=== PATIENT | male | born 1945 | race Caucasian/White ===

== ENCOUNTER 2018-10-09 10:34 | Emergency (ER) | payer MEDICARE ==
[~2018-10-09 10:34] MED LIST: AEC81 PO; ATOR40TA69 PO; BUSP15TA3 PO; CITA40TA6 PO; DONE5TAB33 PO; GLUC-145 PO; LISI-613 PO; LORA0.5T2 PO; MULT-1289 PO; OMEG-98 PO; ZOLP5TAB8 PO
[2018-10-09] MEDS ORDERED: TETANUS/DIPHTHERIA TOXOID [ADULT] 0.5 ML VIAL IM ONE (10:50)
== END 2018-10-09 11:42 | disposition home or self-care (01) ==
LOC: EDH 10:34
DX: S62.617A Displaced fracture of proximal phalanx of left little finger, initial encounter for closed fracture (principal); S52.502A Unspecified fracture of the lower end of left radius, initial encounter for closed fracture; S20.212A Contusion of left front wall of thorax, initial encounter; W11.XXXA Fall on and from ladder, initial encounter; Y93.89 Activity, other specified; Y92.89 Other specified places as the place of occurrence of the external cause; Y99.8 Other external cause status
CPT/HCPCS: 29125; 71100; 73110; 73130; 90471; 90714

== ENCOUNTER → 2024-06-15 | Outpatient (CLI) | payer MEDICARE ==
[~2024-06-15] MED LIST changes: +ASPI-1197 PO; +ATOR40TA71 PO; +CITA-106 PO; +CITA-108 PO; -CITA40TA6 PO; +FINA5TAB41 PO; +FLUT16H NASAL; +HYDR-4068 PO; -LISI-613 PO; +LISI20TA24 PO; +SILV25CR23 TP
--- NOTE | 2024-06-15 14:37 | HMCIMG ---
US CAROTID DUPLEX REASON: occlusion and stenosis of rt carotid artery TECHNIQUE: Exam was performed using spectral analysis and color flow imaging. FINDINGS: Color flow Doppler ultrasound shows normal-appearing bifurcations. There is no anatomic evidence of significant focal narrowing. Flow velocities and velocity ratios appear normal throughout. Moderate plaque in both bifurcations. There is elevated flow velocity proximal right internal carotid artery consistent with a 50-70% stenosis. There is no evidence of stenosis on the left. There is antegrade flow in both vertebral arteries. RIGHT CAROTID: CCA: 98 cm/sec ICA: 201 cm/sec Ratio: ICA/CCA: 2.1 ECA: 2 3 cm/sec Vertebral artery: 36 cm/sec LEFT CAROTID: CCA: 70 cm/sec ICA: 124 cm/sec Ratio: ICA/CCA: 1.8 ECA: 155 cm/sec Vertebral artery: 49 cm/sec IMPRESSION: 1. Findings consistent with a 50-70% stenosis proximal right internal carotid artery.
== END | disposition home or self-care (01) ==
LOC: RAH 13:00
PROVIDERS: ATTEND Family Medicine
DX: I65.21 Occlusion and stenosis of right carotid artery (principal)
CPT/HCPCS: 93880

== ENCOUNTER → 2024-08-10 | Outpatient (CLI) | payer OTHER ==
--- NOTE | 2024-08-10 13:31 | HMCIMG ---
CT calcium scoring Clinical Information: [facility] SCREENING Comparison: None CT Dose Index (CTDI): 13.30 mGy Dose Length Product (DLP): 186.18 total mGy-cm Findings: Calcium score : 01.5. Significant calcification. The CT scan is not a complete chest CT. Covered portion is reviewed for incidental findings. No incidental findings seen. IMPRESSION: Calcium score as above. Calcium score reference stable: 0: No identifiable calcification 1- 10: Minimal identifiable calcification 11-100: Mild calcification 101- 400: Moderate calcification 401 and above: Significant calcification Automated exposure control and adequate statistical iterative reconstructions were utilized as dose reduction techniques.
== END | disposition home or self-care (01) ==
LOC: RAH 12:41
PROVIDERS: ATTEND Internal Medicine
DX: Z13.6 Encounter for screening for cardiovascular disorders (principal); I25.10 Atherosclerotic heart disease of native coronary artery without angina pectoris; R73.03 Prediabetes
CPT/HCPCS: 75571

== ENCOUNTER 2024-10-04 14:25 | Emergency (ER) | payer OTHER ==
[~2024-10-04] VITALS: Ht 188 cm; Wt 102.1 kg
[2024-10-04] MEDS ORDERED: TETRACAINE HCL 0.5% 4 ML OPHTH SOLN ONE (16:04)
[2024-10-04] MEDS ORDERED: FLUORESCEIN SODIUM 1 STRIP STRIP OP ONE (16:30)
[2024-10-04] MEDS ORDERED: POLYOS OP (16:42)
--- NOTE | 2024-10-04 16:44 | ERN ---
ED Note History of Present Illness Stated Complaint: LEFT EYE PAIN Chief Complaint: Eye Problems Time Seen by MD: 15:38 Dictation: HISTORY OF PRESENT ILLNESS: 79-year-old male with past medical history of diabetes, hyperlipidemia, hypertension presented to ED with complaints of left eye irritation for past 3 days. 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 He denies any vision changes, discharge from left eye, eye pain. At the time of presentation his pulse rate is 76 per minute, blood pressure 141/79, respiratory rate 16, temperature 98 F. His left eye is red. Allergies: Coded Allergies: No Allergy Information Available (Verified Allergy, Unknown, 10/04/22) No Known Drug Allergies (Verified Allergy, Unknown, 01/31/17) Home Meds Active Scripts Polymyxin B Sulfate/Tmp (Polytrim Ophth Soln) 10,000 Unit-1 Mg/Ml Opsol, 1 DROP OP TID for 7 Days, #10 ML 0 Refills Prov:DIAZ BAIG MD 10/04/24 Silver Sulfadiazine (Ssd) 25 Gm Cream..g., 1 VIVIEN TP BID, #1 TUBE 1 Refill Apply to wound twice per day Prov:JENNIFER GUALLPA MD 02/11/22 Reported Medications Zolpidem Tartrate (Zolpidem Tartrate) 5 Mg Tablet, 5 MG PO DAILY, TAB 02/07/22 Donepezil HCl (Donepezil HCl) 5 Mg Tablet, 5 MG PO DAILY, TAB 02/07/22 Citalopram Hydrobromide (Celexa 20Mg Tab) 20 Mg Tablet, 20 MG PO DAILY, TAB 02/07/22 Finasteride (Finasteride) 5 Mg Tablet, 5 MG PO DAILY, TAB 02/07/22 Atorvastatin Calcium (Atorvastatin Calcium) 40 Mg Tablet, 40 MG PO HS, TAB 02/07/22 Lisinopril (Lisinopril) 20 Mg Tablet, 20 MG PO DAILY, TAB 02/07/22 Aspirin (Aspirin) 81 Mg Tab.chew, 81 MG PO DAILY, TAB.CHEW 02/07/22 Hydrocodone/Acetaminophen (Hydrocodon-Acetaminophn 10-325) 1 Each Tablet, 1 EACH PO Q4HPRN, TAB 02/06/22 Fluticasone Propionate (Flonase Nasal [place]) 50 Mcg/Commiskey [place], 50 MCG NASAL DAILY, SPRAY 02/06/22 Multivit-Min/FA/Lycopen/Lutein (Centrum Silver Men Tablet) 1 Each Tablet, 1 EACH PO DAILY, TAB 01/31/17 Gluc 2Kcl/Chondr/[place] Hy/Hy AC (Glucosamine & Chondroitin Cap) 1 Each Capsule, 1 EACH PO BID, CAP 01/31/17 [place]-3S/Dha/Epa/Fish Oil (Fish Oil 1,200 mg Softgel) 1 Each Capsule, 1 EACH PO BID, CAP 01/31/17 Aspirin (ASPIRIN 81 MG ECTAB) 81 Mg Ectab, 81 MG PO DAILY, TAB.EC 01/31/17 Zolpidem Tartrate (Zolpidem Tartrate) 5 Mg Tablet, 5 MG PO DAILY, TAB 01/31/17 Citalopram Hydrobromide (Citalopram HBr) 40 Mg Tablet, 40 MG PO DAILY, TAB 01/31/17 Buspirone HCl (Buspirone HCl) 15 Mg Tablet, 15 MG PO BID, TAB 01/31/17 Atorvastatin Calcium (LIPITOR) 40 Mg Tablet, 40 MG PO DAILY, TAB 01/31/17 Lisinopril (Lisinopril) 20 Mg Tablet, 20 MG PO DAILY, TAB 01/31/17 Donepezil HCl (Donepezil HCl) 5 Mg Tablet, 5 MG PO DAILY, TAB 01/31/17 Lorazepam (Lorazepam) 0.5 Mg Tablet, 0.5 MG PO AD PRN for ANXIETY/AGITATION, TAB 01/31/17 Past Medical History Past Medical History: Diabetes-Type II, High Cholesterol, Hypertension Surgical History: Other Surgical History Other: SHOULDER Review of System Dictation REVIEW OF SYSTEMS Positive for left eye irritation CONSTITUTIONAL: Denies fevers, chills, or night sweats. No unintentional weight loss reported. ENT: No hearing loss, otalgia, otorrhea, rhinitis, rhinorrhea, hoarseness, or sore throat. CARDIOVASCULAR: Denies any exertional angina, dyspnea on exertion, orthopnea, paroxysmal nocturnal dyspnea, palpitations claudication. PULMONARY: Denies any shortness of breath, cough, phlegm / sputum, hemoptysis, pleuritic chest pain. SLEEP: Denies morning headaches, daytime somnolence or napping. Denies difficulty falling asleep, staying asleep, waking from sleep. Denies knowledge of snoring. GASTROINTESTINAL: Denies any type of dysphagia to either liquids or solids. Denies nausea, vomiting, abdominal pain, diarrhea, constipation, blood in stools . NEUROLOGICAL: Denies headache, motor weakness, sensory deficit, vertigo / spinning sensation, gait abnormalities, or tremors. GENITOURINARY: Denies frequency, urgency, nocturia, hematuria or incontinence, low urinary stream, straining to void, urinary intermittency or hesitancy ENDOCRINOLOGY: Denies polyuria, polydipsia, polyphagia or heat / cold intolerance. HEMATOLOGY: Denies thrombophilia / previous clots, or coagulopathy / bleeding disorders. ONCOLOGIC: Denies personal history of malignancy. DERMATOLOGIC: Denies rashes or pruritus. PSYCHIATRIC: Denies any suicidal or homicidal ideation. Denies hallucinations. Initial Vital Sign VS Vital Signs Date Time Temp Pulse Resp B/P (MAP) Pulse Ox O2 Delivery O2 Flow Rate FiO2 10/04/24 14:35 98.4 76 16 141/79 94 Room Air 0 10/04/24 17:00 21 Physical Exam Dictation PHYSICAL EXAM GENERAL APPEARANCE: Well nourished . Awake and alert. Oriented to time, place and person. No acute cardiopulmonary distress. HEENT: Head normocephalic , atraumatic. Sclera anicteric . Pupils are round and reactive. Extraocular movements intact . Mild conjunctival injection plus left side. No nasal congestion. No throat congestion .Oral mucosa moist. NECK: Supple. No JVD. No thyromegaly. No submental, submandibular, pre- /postauricular, occipital or supraclavicular lymphadenopathy. No carotid bruits. CHEST: Normal chest expansion. No Telemetry. LUNGS: Clear to auscultation bilaterally . No rales, rhonchi or any wheezing. Equal tactile fremitus. Resonant to percussion . CARDIOVASCULAR: Regular rate and rhythm. S1 and S2 normal. No rubs, murmurs or gallops. ABDOMEN: Soft, nontender, and nondistended. There is no rebound tenderness, voluntary guarding, or rigidity. No hepatosplenomegaly. Bowel sounds normal in all four quadrants . NEUROLOGICAL: Cranial nerves II-XII grossly intact. Motor is 5/5 in bilateral upper and lower extremities . No sensory deficits. EXTREMITIES: No edema, No cyanosis , No clubbing. Good capillary refill. SKIN: No skin breakdown. No rashes or lesions . PSYCHIATRY: Normal affect .No auditory or visual hallucinations. Normal speech. No dysarthria. ED Course ED Course Orders Procedure Category Date Status Time Fluorescein Sodium PHA 10/04/24 Complete (Ivnun-J-Zslfo At) 16:30 Tetracaine Hcl PHA 10/04/24 Complete (Pontocaine 0.5% 16:04 *Nursing CPOE 10/04/24 Transmitted Communication: 16:22 Current Medications Medications (Trade) Dose Ordered Sig/Mary Route PRN Reason Start Time Stop Time Status Last Admin Dose Admin Fluorescein Sodium (Mlnuq-N-Hahim At) 1 strip ONCE ONCE OP 10/04/24 16:30 10/04/24 16:31 DC Tetracaine HCl (Pontocaine 0.5% Ophth Soln) 20 drop STK-MED ONCE .ROUTE 10/04/24 16:04 10/04/24 16:04 DC Vital Signs Date Time Temp Pulse Resp B/P (MAP) Pulse Ox O2 Delivery O2 Flow Rate FiO2 10/04/24 17:00 97.3 67 18 147/81 96 Room Air* 0 21 10/04/24 14:35 98.4 76 16 141/79 94 Room Air 0 Medical Decision Making MDM Differential diagnosis : Left eye glaucoma, left eye foreign body, left corneal ulcer Rationale: Tests considered and ordered secondary to shared decision making include: I will re-evaluate the patient after treatment and diagnostic exams have returned to determine whether they require further testing, can be safely discharged home, or need admission for further treatment and evaluation. Given the social determinants of health affecting care, including literacy, access to medical care, prescription drug management, and [id number] drugs, I will ensure that treatment plans are tailored accordingly. There are no social concerns with this patient. Risk of complication and/or morbidity or mortality of patient management: None Need for hospitalization: Patient does not meet criteria for hospitalization. Need for emergency major/minor surgery: No Prescription drug management Prescriptions will include symptomatic care Medications-Per medication reconciliation Previous outside records reviewed: Old ER visits. Patient's prior external medical records from other ER visits were reviewed by me as indicated. Prior testing and results from previous visits were reviewed. Prior tests were taken into account with medical decision making and resource utilization, independent historian/historians were used to obtain complete medical history. I independently interpreted the test that were performed, results were reviewed by me and considered findings on radiology. Medical management and examination interpretation discussions was done by me with other qualified healthcare professionals as indicated for the patient's care. Revaluation: Tonometer showed left ocular pressure of 15-normal. Under fluorescein dye examination, a small corneal opacity noted. Left eye was irrigated. We will request polymyxin eyedrops. Patient is required to follow up with his primary care doctor in 1-2 days. Disposition : Discharge home Procedure Alcaine Drops Administered: Yes Eye Irrigated w/ Saline (ccs): 20 DX & DISP Disposition: Discharge Departure Impression: Primary Impression: Corneal irritation of left eye Additional Impressions: Foreign body sensation, left eye, Diabetes mellitus Condition: Stable Scripts Polymyxin B Sulfate/Tmp (Polytrim Ophth Soln) 10,000 Unit-1 Mg/Ml Opsol 1 DROP OP TID for 7 Days, #10 ML 0 Refills Prov: DIAZ BAIG MD 10/04/24 Additional Instructions: Follow-up with primary care provider in 1-2 days Take medications as directed here in the emergency room. You can use to try cocaine hydrochloride ophthalmic solution 1 drop to the left eye twice daily for irritation. It is okay to continue home medications unless otherwise discussed during your visit in the emergency room today. Increase oral hydration. Return to your nearest emergency room if symptoms worsen or if there is no improvement. Call 911 if you need immediate assistance. Referrals: BARBRA LEBRON (PCP) I performed a substantive portion of the visit. I have reviewed and personally made and approve the management plan that is documented in the notes by myself with VIVIEN/resident. I acknowledged full responsibility for the patient's management plan. DIAZ BAIG MD Oct 04, 2024 16:44 LIBERTY SCHWARTZ DO Oct 05, 2024 07:50
[2024-10-04 17:00] VITALS: BP 147/81; PULSE 67; RESP 18; TEMP 97.4; O2SAT 96
== END 2024-10-04 17:10 | disposition home or self-care (01) ==
LOC: EDH 14:25
DX: H57.89 Other specified disorders of eye and adnexa (principal); H57.8A2 Foreign body sensation, left eye; E11.9 Type 2 diabetes mellitus without complications; E78.00 Pure hypercholesterolemia, unspecified; I10 Essential (primary) hypertension; Z79.82 Long term (current) use of aspirin; Z79.899 Other long term (current) drug therapy
CPT/HCPCS: 99283

== ENCOUNTER → 2025-01-26 | Outpatient (CLI) | payer OTHER ==
[~2025-01-26] MED LIST changes: +POLYOS OP
--- NOTE | 2025-01-27 21:02 | HMCIMG ---
EXAM: Whole body bone scan. 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 REFERENCE EXAMINATION: None TECHNIQUE: 21.7 mCi of technetium 99m MDP intravenously. Delayed images were acquired at approximately 3 hours from tracer administration. FINDINGS: The radiopharmaceutical is seen in the expected bio distribution. Increased uptake in the medial end of bilateral clavicle and left acromioclavicular joint - degenerative. Increased uptake in the right first metatarsophalangeal joint and left midfoot - degenerative. No other abnormal uptake noted in the entire skeleton. IMPRESSION: Normal Bone scan with no obvious evidence of osteoblastic skeletal metastases. /[place]
== END | disposition home or self-care (01) ==
LOC: RAH 12:40
PROVIDERS: ATTEND Urology Pediatric Urology
DX: C61 Malignant neoplasm of prostate (principal)
CPT/HCPCS: 78306; A9503